=== PATIENT | male | born 1985 | race Caucasian/White ===

== ENCOUNTER → 2020-01-10 | Outpatient (CLI) | payer MEDICARE, MEDICAID ==
[~2020-01-10] MED LIST: CYAN-50 PO; FOLI-43 PO; VALS40TA4 PO
== END | disposition home or self-care (01) ==
LOC: CARD 09:52
PROVIDERS: ATTEND Internal Medicine Nephrology
DX: I34.0 Nonrheumatic mitral (valve) insufficiency (principal); R60.9 Edema, unspecified
CPT/HCPCS: 93306